=== PATIENT | male | born 1980 | race Caucasian/White ===

== ENCOUNTER 2019-05-26 20:34 | Inpatient (IN) | payer BC, MEDICAID ==
[~2019-05-26] VITALS: Ht 175.3 cm; Wt 83.5 kg
[~2019-05-26 20:34] MED LIST: METO25TA6 PO; OMEP40CA PO; PRED5TAB48 PO
[2019-05-26 21:48] LABS: BASOPHILS % 0.6 % (0.0-2.0); EOSINOPHILS % 0.3 % (0.0-5.0); HEMATOCRIT. 44.9 % (42.0-52.0); HEMOGLOBIN. 15.8 g/dL (14.0-18.0); LYMPHOCYTES % 10.6 % (20.0-50.0); MEAN CORPUSCULAR HEMOGLOBIN 31.7 pg (28.0-32.0); MEAN CORPUSCULAR VOLUME 90.5 fL (80.0-94.0); MEAN PLATELET VOLUME 9.4 fl (7.4-10.4); MONOCYTES % 8.2 % (2.0-8.0); NEUTROPHILS % 80.3 % (40.0-76.0); PLATELET 176 x1000/uL (130-400); RED BLOOD CELL COUNT 4.97 mill/uL (4.7-6.1); RED CELL DISTRIBUTION WIDTH 13.3 % (11.6-14.6)
[2019-05-26 21:54] LABS: CHLORIDE 106 mEq/L (98-107)
[2019-05-26 21:57] LABS: PROTHROMBIN TIME 10.7 sec (9.6-11.0)
[2019-05-26 21:58] LABS: ETHANOL BLOOD < 10 mg/dL
[2019-05-26] MEDS ORDERED: DIPHENHYDRAMINE 25MG CAPSULE PO ONE (22:00)
[2019-05-26] MEDS ORDERED: METOCLOPRAMIDE HCL 10MG/2ML VIAL IV ONE (22:00)
[2019-05-26] MEDS ORDERED: SODIUM CHLORIDE 0.9% 500 ML IV ONE (22:00)
[2019-05-26 22:01] LABS: LDL CHOLESTEROL 62 mg/dL (5-100)
[2019-05-26 22:39] LABS: CLARITY URINE CLEAR (CLEAR); COLOR URINE YELLOW (YELLOW); KETONES URINE 3+ (NEGATIVE); LEUKOCYTE ESTERASE URINE NEGATIVE (NEGATIVE); NITRITE URINE NEGATIVE (NEGATIVE); OCCULT BLOOD URINE NEGATIVE (NEGATIVE); PROTEIN URINE NEGATIVE (NEGATIVE); SPECIFIC GRAVITY URINE 1.067 (1.005-1.030)
[2019-05-26 22:56] LABS: *AMPHETAMINES SCREEN URINE NEGATIVE (NEGATIVE); *BARBITURATES SCREEN URINE NEGATIVE (NEGATIVE); *BENZODIAZEPINES SCREEN URINE NEGATIVE (NEGATIVE)
[2019-05-26 22:57] LABS: *COCAINE SCREEN URINE NEGATIVE (NEGATIVE); CANNABINOID URINE SCREEN PRESUMTIVE POSITIVE (NEGATIVE); METHADONE URINE SCREEN NEGATIVE (NEGATIVE); OPIATES URINE SCREEN PRESUMTIVE POSITIVE (NEGATIVE); PHENCYCLIDINE URINE SCREEN NEGATIVE (NEGATIVE)
[2019-05-27] VITALS (7 sets, daily range): BP systolic 101–118; BP diastolic 46–83
[2019-05-27] MEDS ORDERED: IOHEXOL-350 100 ML BOTTLE ONE (01:57)
[2019-05-27] MEDS ORDERED: ROSU20TA2 PO (02:44)
[2019-05-27] MEDS ORDERED: APIX5TAB PO (02:44)
[2019-05-27] MEDS ORDERED: PNEUMOCOCCAL 23-VAL P-SAC VAC 0.5 ML IM ONE (08:00)
[2019-05-27] MEDS ORDERED: CLOPIDOGREL 75MG TABLET PO SCH (09:00)
[2019-05-27] MEDS ORDERED: METOPROLOL TARTRATE 25MG TABLET PO SCH (09:00)
[2019-05-27] MEDS ORDERED: APIXABAN 5 MG TABLET PO SCH (09:00)
[2019-05-27] MEDS ORDERED: ATORVASTATIN CALCIUM 40MG TABLET PO SCH (21:00)
== END 2019-05-27 15:40 | disposition home or self-care (01) | DRG 69 ==
LOC: ER 20:34 → 5WST 23:05 → EDBEDREQ 23:08 → EDBEDREQSVC 23:08 → EDBEDREQTM 23:08 → ENRESERV 23:56
PROVIDERS: ADMIT Internal Medicine; ATTEND Internal Medicine
DX: G45.9 Transient cerebral ischemic attack, unspecified (principal); I48.91 Unspecified atrial fibrillation; F12.90 Cannabis use, unspecified, uncomplicated; G43.909 Migraine, unspecified, not intractable, without status migrainosus; I10 Essential (primary) hypertension; Z86.73 Personal history of transient ischemic attack (TIA), and cerebral infarction without residual deficits; Z79.01 Long term (current) use of anticoagulants; Z88.6 Allergy status to analgesic agent
CPT/HCPCS: 36415; 70496; 70551; 71045; 80053; 80305; 80320; 81003; 82962; 83721; 84484; 85025; 93005; 93306; 96365; 96375; 99291; J2765; J7040; Q0163; Q9967; G0480